=== PATIENT | female | born 1995 | race Caucasian/White ===

== ENCOUNTER 2025-04-12 14:13 | Emergency (ER) | payer OTHER, SELFPAY ==
[2025-04-12 14:16] VITALS: BP 137/93
--- NOTE | 2025-04-12 15:12 | ED.GENMED ---
History of Present Illness
General
Chief Complaint: Crisis Evaluation
Time Seen by Provider: 04/12/25 14:49
History of Present Illness
History of Present Illness:
29-year-old female with history of PTSD and bipolar disorder presents to the emergency department for evaluation of severe insomnia. She is having difficulty sleeping for the past several days and this is increasing her anxiety. She has been
taking Klonopin without relief. Denies SI or HI. She is requesting prazosin as this has worked in the past
Review of Systems
Review of Systems
Allergies reviewed?: Yes
All Other Systems: ROS reviewed and negative except as documented in HPI and ROS
Phy Exam
Physical Exam
Physical Exam:
GEN: Well appearing, NAD, WDWN
HEENT: Oral mucosa moist, no scleral icterus
Cardiac: Regular rate
Lung: No respiratory distress, no tachypnea
MSK: No gross deformity or injuries
Skin: Good color, no pallor or jaundice, no rashes
Neuro: AO x3, moves all extremities freely
Psych: Calm, cooperative
Course
Orders/Labs/Results
Orders:
Orders
04/12/25 14:21
Crisis Consult Urgent
Reason for Consult: insomnia, anxiety, depression
Vital Signs
Initial and Last Documented VS:
Initial Vital Signs
Temp Pulse Resp BP Pulse Ox
98.2 F 75 20 137/93 98
04/12/25 14:16 04/12/25 14:16 04/12/25 14:16 04/12/25 14:16 04/12/25 14:16
Last Documented Vital Signs
Temp Pulse Resp BP Pulse Ox
98.2 F 75 20 137/93 98
04/12/25 14:16 04/12/25 14:16 04/12/25 14:16 04/12/25 14:16 04/12/25 15:14
MDM/Problems Addressed
MDM/Problems Addressed:
Seen by crisis and provided with outpatient partial program resources. Will start prazosin per patient request to avoid benzos. The patient on numerous occasions requested prescriptions for IM Benadryl which I have informed her is not appropriate
*Pulse Oximetry
SaO2: 98
Oxygen Mode of Delivery: Room air
Patient hypoxic: no
*Critical Care Note
Total Time (30-74mins, 75-104mins- exclusive of procedures): Not Applicable
ED Attending Note
-
Portions of this chart may have been created with voice recognition software.� Occasional wrong word or��sound alike� substitutions may have occurred due to the inherent limitations of voice recognition software.
Discharge Plan
Departure
Patient Disposition: Home (Routine Discharge)
Date of Disposition: 04/12/25
Time of Disposition: 15:13
Patient with high blood pressure during this ER visit?: No
Discharge Problem:
Insomnia
Instructions: Insomnia
Prescriptions:
New
prazosin 2 mg capsule
2 - 4 mg PO HS Qty: 30 0RF
Interventions
Interventions:
*Risk Screen - Suicide Last Done: 04/12/25 14:15
*General Assessment Last Done: 04/12/25 14:19
*Neglect/Abuse Screening Last Done: 04/12/25 14:19
*ED- Fall Risk Assessment Last Done: 04/12/25 15:41
*ED COVID-19 Vaccine History Last Done: 04/12/25 15:41
*Nursing Disposition Last Done: 04/12/25 15:41
Discharge Date and Time
Discharge Date/Time: 04/12/25 15:55
Print Language: TUVALU[place]
== END 2025-04-12 15:55 | disposition home or self-care (01) ==
LOC: EMR 14:13
PROVIDERS: EMERGENCY PHYSICIAN Emergency Medicine; FAMILY PHYSICIAN Family Medicine
DX: G47.00 Insomnia, unspecified (principal); F43.10 Post-traumatic stress disorder, unspecified; F31.9 Bipolar disorder, unspecified; F41.9 Anxiety disorder, unspecified; Z79.899 Other long term (current) drug therapy
CPT/HCPCS: 99282